=== PATIENT | female | born 1945 | race Caucasian/White ===

== ENCOUNTER 2017-03-02 08:41 | Emergency (ER) | payer MEDICARE, OTHER ==
[~2017-03-02] VITALS: Ht 160 cm; Wt 65.8 kg
[~2017-03-02 08:41] MED LIST: ACETAMINOPHEN325 M1 PO; ATENOLOL25 MG PO; ATENOLOL50 MG; CODEINE-GUAIFE120 ML PO; GABAPENTIN300 MG PO; LIPITOR20 MG PO; LISINOPRIL20 MG; LISINOPRIL20 MG PO; LYRICA50 MG PO; MUCINEX DM ER1 EAC1 PO; TRAZODONE HCL150 MG PO; TRAZODONE HCL50 MG PO; VICODIN 5-3001 EACH PO; VITAMIN D250000 UNIT PO
[2017-03-02] MEDS ORDERED: NORCO 5-325 TA1 EACH PO (09:18)
== END 2017-03-02 09:25 | disposition home or self-care (01) ==
LOC: ED 08:41
DX: H92.01 Otalgia, right ear (principal); Z86.73 Personal history of transient ischemic attack (TIA), and cerebral infarction without residual deficits; Z90.710 Acquired absence of both cervix and uterus; Z90.49 Acquired absence of other specified parts of digestive tract; Z79.899 Other long term (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
CPT/HCPCS: 99283

== ENCOUNTER 2018-08-25 07:18 | Day surgery (SDC) | payer MEDICARE, OTHER ==
[~2018-08-25] VITALS: Ht 160 cm; Wt 69.4 kg
[~2018-08-25 07:18] MED LIST changes: +CARTIA XT300 MG PO; +FLUOCINOLON118.28 M1 TOP; +NORCO 5-325 TA1 EACH PO; +PRILOSEC10 M1 PO; +VITAMIN D5000 UNIT PO; +VITAMIN D50000 UNI1 PO; +ZOLOFT50 MG PO
[2018-08-25] MEDS ORDERED: TRAZODONE HCL100 MG PO (07:40)
--- NOTE | 2018-08-25 10:28 | NUR ---
08/25/18 Benitez8 Zelda Ko 1021-PATIENT ARRIVED TO PACU ON 3L WEANED TO 2L RR EVEN. PATIENT REACTIVE TO VOICE REPORTS YES WHEN ASKED IF COMFORTABLE. ABDOMEN SOFT ENCOURAGED TO PASS FLATUS. DOZES BACK TO SLEEP.
--- NOTE | 2018-08-25 12:37 | NUR ---
LE 1150: PATIENT'S REPORTS TO THE NURSE'S STATION AND REPORTS "SHE NEEDS TO USE THE RESTROOM". THIS RN PRESENTS TO PATIENT ROOM AND PATIENT IS ASSISTED TO THE EDGE OF THE BED. PATIENT ASKED WHETHER SHE WOULD LIKE A WHEELCHAIR. PATIENT REPORTS "I SHOULD BE ABLE TO MAKE IT WITH MY CANE". PATIENT ASKS FOR HER UNDERWEAR. PATIENT BELONGING BAG IS GIVEN TO PATIENT. PATIENT IS STRUGGLING WITH GETTING HER UNDERWEAR ON AND ATTEMPTS TO PUT THEM ON INSIDE OUT DESPITE THIS RN'S OFFER TO HELP. THIS RN FINALLY ASSISTS PATIENT WITH PUTTING HER UNDERWEAR ON AND IT IS NOTED THAT PATIENT IS DISABLED ON HER LEFT SIDE. PATIENT IS GIVEN HER CANE AND SHE WALKS 3 STEPS WITH THIS RN ASSISTING HER AND SHE STATES "I DON'T KNOW IF I'M GOING TO MAKE IT WITHOUT MY LEG BRACE". PATIENT INSTRUCTED TO SIT ON THE BED AND I WILL ASSIST HER WITH PLACING HER LEG BRACE. PATIENT STATES "CAN YOU JUST GET A WHEELCHAIR INSTEAD"? PATIENT INSTRUCTED TO SIT ON THE EDGE OF THE BED WHILE I RETRIEVE THE WHEELCHAIR. PATIENT STATES "I WILL JUST REST RIGHT HERE BY THE SINK". I LEAVE THE ROOM TO RETRIEVE THE WHEELCHAIR AND WHEN I ARRIVE BACK IN THE PATIENT'S ROOM, SHE IS FOUND ON THE FLOOR NEXT TO THE SINK WITH HER HEAD AGAINST THE WALL AND THE GARBAGE CAN UNDER HER LEFT SHOULDER. PATIENT REPORTS "I DON'T KNOW WHAT HAPPENED. MY LEG GAVE OUT ON ME." PATIENT IS TEARFUL AND REPORTS "I WANT TO GO HOME". PATIENT UPDATED ON HER PLAN OF CARE AND HER REQUIREMENT TO STAY UNTIL 1315 AND PATIENT VERBALIZES UNDERSTANDING. THIS RN AND CLIVE LERMA RN ASSIST PATIENT TO STANDING POSITION AND INTO WHEELCHAIR. PATIENT TOLERATES THIS TRANSFER WELL. PATIENT WHEELED TO THE BATHROOM AND THIS RN ASSISTS PATIENT TO STANDING POSITION AND THEN TRANSFER TO THE TOILET. THIS RN IS PRESENT WITH THE PATIENT WHILE USING THE BATHROOM. PATIENT IS ASSISTED TO STANDING POSITION AND TRANSFERRING TO WHEELCHAIR AND PATIENT TOLERATES THIS WELL. PATIENT WHEELED BACK TO HER ROOM, TRANSFERRED TO THE BED AND SIDE RAILS ARE UP. CALL LIGHT W/IN REACH. SKIN ASSESSMENT DONE AND A REDDENED AREA IS NOTED ON THE BACK OF PATIENT'S HEAD. PATIENT DENIES DIZZINESS OR BLURRED VISION. PATIENT REPORTS "I FEEL FINE. JUST FOOLISH". CALL TO DR. PATEL. NO NEW ORDER RECEIVED AT THIS TIME. WILL CONTINUE TO MONITOR PATIENT.
--- NOTE | 2018-08-26 09:48 | OR ---
[facility] [address] [place], [place] [address] Signed DATE OF OPERATION: 08/25/2018 SURGEON: Mike Patel MD PREOPERATIVE DIAGNOSIS: Personal history of multiple colonic polyps in 2013. POSTOPERATIVE DIAGNOSES: 1. 4 mm cecal polyps x4. 2. 7 mm cecal polyps x2. 3. 4 mm polyp, proximal right colon. 4. 6 mm hepatic flexure. 5. 5 mm polyps at 140 and 110 cm. 6. 5 mm polyps x2 proximal transverse colon. 7. 4 mm polyps x2 at 95 and 35 cm. 8. 4 mm polyp at 10 cm. 9. Minimal to moderate internal hemorrhoids. PROCEDURES: Colonoscopy, snare polypectomy, and hot biopsy. ESTIMATED BLOOD LOSS: None. INDICATIONS: Skylar is a 72-year-old female who came in 2013. She had multiple colonic polyps removed. We had asked her to return in one year. Unfortunately, she had ended up being 4 years. She gives no family history of colon cancer or polyps. She has no lower GI complaints. 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 We always sedate Skylar with our Versed and fentanyl 1st, then we turned her on her side and that worked out very well for her. In the office I gave Skylar a pamphlet on colonoscopy and she remembers the nature of that test along with its risks including, but not limited to gas bloating, crampy abdominal pain, bleeding, perforation, requiring surgery, and missed diagnosis. She had expressed understanding wished to proceed. PROCEDURE NOTE: Skylar was taken into our endoscopy suite and placed in the supine position initially. She was given Versed and fentanyl until sedated. We rotated her then into the left lateral decubitus position. In total, she received 10 mg of Versed and 200 mcg of Electronically Signed By: MIKE PATEL MD 08/26/18 0948 PATIENT NAME: SKYLAR CALLAHAN OPERATIVE REPORT DATE OF : 47 REPORT #: [id number] PHYSICIAN: MIKE PATEL MD PCP: ROSEY LAMBERT PA-C REPORT IS CONFIDENTIAL AND NOT TO BE RELEASED WITHOUT AUTHORIZATION [facility] [address] [place], [place] [address] Signed fentanyl, mainly because it took time to remove all the polyps. During the procedure, we also had to rotate her back into the supine position in order to advance the scope into the cecum itself. Her prep was good. The scope was slowly withdrawn. The above-mentioned polyps were all removed either with hot biopsy forceps with the help of the snare. The one at 110 cm gave us the most trouble and there was another polyp within 20-30 cm proximal that also gave her some trouble. We did not see any diverticulosis. In the rectum, the scope had been retroflexed and she does have minimal to moderate internal hemorrhoid columns. After this, the gas had been suctioned out and the colonoscope removed. Skylar tolerated the procedure quite well. RECOMMENDATIONS: I will see Skylar back in my office in 7 to 14 days to review her results. Once again, we are going to recommend she return somewhere between 12 and 18 months on a short interval due to the history of number of polyps we removed. Mike Patel MD ALB/MODL /[id number] cc: ANAT Rodrigues MD Copies: ROSEY LAMBERT PA-C, ANDREW L MD ~ Electronically Signed By: MIKE PATEL MD 08/26/18 0948 PATIENT NAME: SKYLAR CALLAHAN OPERATIVE REPORT DATE OF : 47 REPORT #: [id number] PHYSICIAN: MIKE PATEL MD PCP: ROSEY LAMBERT PA-C REPORT IS CONFIDENTIAL AND NOT TO BE RELEASED WITHOUT AUTHORIZATION
--- NOTE | 2018-08-27 13:06 | NUR ---
LATE ENTRY FOR 08/25/18 DC NOTE FAILED TO STAY. PT UP WITH ASSIST AND HELPED GET DRESSED. PT NOT ALLOWING NURSES TO REALLY ASSIST HANDED PT CLOTHING. WHEN ATTEMPTED TO PUT SHOE ON PT SCREAMED. ALLOWED HER TO DRESS SELF WITH STAND BY ASSIST. AFTER GETTING DRESSED SHE DENIES ANY OTHER ACHES OR PAINS FROM FALL. STATES SLIGHT HEADACHE ONLY. PERRL. DENIES ANY VISION DISTURBANCES. HERE TO TAKE PT HOME. DCD PER WC.
== END 2018-08-25 13:20 | disposition home or self-care (01) ==
LOC: OPS 07:18 → DS 07:18 → OPS 09:00
PROVIDERS: Colon & Rectal Surgery
PROC: 0DBL8ZX Excision of Transverse Colon, Via Natural or Artificial Opening Endoscopic, Diagnostic (ICD-10-PCS; 2018-08-25)
PROC: 0DBE8ZX Excision of Large Intestine, Via Natural or Artificial Opening Endoscopic, Diagnostic (ICD-10-PCS; 2018-08-25)
PROC: 0DBH8ZX Excision of Cecum, Via Natural or Artificial Opening Endoscopic, Diagnostic (ICD-10-PCS; principal; 2018-08-25 09:00)
DX: Z12.11 Encounter for screening for malignant neoplasm of colon (principal); D12.3 Benign neoplasm of transverse colon; D12.0 Benign neoplasm of cecum; D12.6 Benign neoplasm of colon, unspecified; K64.8 Other hemorrhoids; G47.30 Sleep apnea, unspecified; M16.0 Bilateral primary osteoarthritis of hip; M81.0 Age-related osteoporosis without current pathological fracture; I69.954 Hemiplegia and hemiparesis following unspecified cerebrovascular disease affecting left non-dominant side; Z86.010 Personal history of colon polyps; Z79.899 Other long term (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; Z79.52 Long term (current) use of systemic steroids; Z98.890 Other specified postprocedural states; Z88.8 Allergy status to other drugs, medicaments and biological substances
CPT/HCPCS: 88305; 99153; G0500; J2250; J2310; J3010; J7120

== ENCOUNTER 2020-11-19 12:18 | Emergency (ER) | payer MEDICARE, OTHER ==
[~2020-11-19] VITALS: Ht 160 cm; Wt 69.4 kg
[~2020-11-19 12:18] MED LIST changes: +TRAZODONE HCL100 MG PO
[2020-11-19] MEDS ORDERED: HYDROCODON-ACE1 EA10 PO (12:40)
--- NOTE | 2020-11-20 15:39 | EKG ---
[facility] [address] [facility] [place] [address] Signed Normal sinus rhythm Nonspecific T wave abnormality Abnormal ECG No previous ECGs available Confirmed by KATIE HOSKINS DO ([id number]) on 11/20/2020 3:39:15 PM Electronically Signed By: KATIE HOSKINS DO 11/20/20 1539 PATIENT NAME: LORI CALLAHAN ANN Electrocardiogram DATE OF : 47 PHYSICIAN: KATIE HOSKINS DO REPORT #: [id number] REPORT IS CONFIDENTIAL AND NOT TO BE RELEASED WITHOUT AUTHORIZATION
== END 2020-11-19 16:49 | disposition short-term general hospital (02) ==
LOC: ED 12:18
PROC: 0T2BX0Z Change Drainage Device in Bladder, External Approach (ICD-10-PCS; principal; 2020-11-19)
DX: S72.002A Fracture of unspecified part of neck of left femur, initial encounter for closed fracture (principal); R55 Syncope and collapse; Z88.8 Allergy status to other drugs, medicaments and biological substances; Z86.73 Personal history of transient ischemic attack (TIA), and cerebral infarction without residual deficits; W18.39XA Other fall on same level, initial encounter
CPT/HCPCS: 51702; 70450; 71045; 72125; 73502; 73552; 73630; 80053; 81001; 83735; 84484; 85025; 93005; 93010; 99285-25; C9803; J2270; J3010; J7030; U0003

== ENCOUNTER 2021-08-30 10:12 | Emergency (ER) | payer MEDICARE, OTHER ==
[~2021-08-30] VITALS: Ht 160 cm; Wt 65.8 kg
[~2021-08-30 10:12] MED LIST changes: +HYDROCODON-ACE1 EA10 PO
--- OUTSIDE RECORDS SUMMARY | 2021-08-30 10:14 | XMS ---
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 [place] VISIT COUNT (12 MO.) [address] [facility] TOTAL 2 NOTE: Visits indicate total known visits. ED/UCC VISIT TRACKING (12 MO.) 08/30/2021 10:12 [facility] [place] TYPE: Emergency COMPLAINT: - GLF,L HIP PAIN 11/19/2020 12:19 [facility] [place] TYPE: Emergency COMPLAINT: - FALL DIAGNOSES: - Personal history of transient ischemic attack (TIA), and cerebral infarction without residual deficits - Pain in left hip - Other fall on same level, initial encounter - Syncope and collapse - Allergy status to other drugs, medicaments and biological substances - Fracture of unspecified part of neck of left femur, initial encounter for closed fracture INPATIENT VISIT TRACKING (12 MO.) 11/19/2020 18:06 [facility] TYPE: Medical Surgical COMPLAINT: - FEMORAL NECK FX DIAGNOSES: 0. Pain in left hip 1. Fracture of unspecified part of neck of left femur, initial encounter for closed fracture 2. Unspecified fall, initial encounter 3. History of falling 4. Unspecified place or not applicable 5. Essential (primary) hypertension 6. Syncope and collapse 7. Other constipation 8. Other chronic pain 9. Acquired absence of both cervix and uterus 10. grocery shopper (current) use of opiate analgesic 11. 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 Family history of ischemic heart disease and other diseases of the circulatory system 13. 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
[2021-08-30] MEDS ORDERED: TRAZODONE HCL150 MG PO (11:00)
[2021-08-30] MEDS ORDERED: GABAPENTIN300 MG PO (11:00)
== END 2021-08-30 13:45 | disposition home or self-care (01) ==
LOC: ED 10:12
DX: S70.02XA Contusion of left hip, initial encounter (principal); W01.10XA Fall on same level from slipping, tripping and stumbling with subsequent striking against unspecified object, initial encounter; Z88.8 Allergy status to other drugs, medicaments and biological substances; Z79.899 Other long term (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; Z79.891 Long term (current) use of opiate analgesic; Z20.822 Contact with and (suspected) exposure to COVID-19
CPT/HCPCS: 73502; 80048; 82553; 85025; 99284-25; C9803

== ENCOUNTER 2022-12-14 00:59 | Emergency (ER) | payer OTHER, MEDICARE ==
[~2022-12-14] VITALS: Ht 160 cm; Wt 65.8 kg
--- OUTSIDE RECORDS SUMMARY | 2022-12-14 01:00 | XMS ---
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 Kwadwo VISIT COUNT (12 MO.) 1 [facility] TOTAL 1 NOTE: Visits indicate total known visits. ED/UCC VISIT TRACKING (12 MO.) 12/14/2022 00:59 [facility] [place] TYPE: Emergency COMPLAINT: - GLF,LT SHOULDER/HIP PAIN INPATIENT VISIT TRACKING (12 MO.) No inpatient visits to display in this time frame [email or web address]
[2022-12-14] MEDS ORDERED: ATORVASTATIN CA40 MG PO (01:37)
[2022-12-14] MEDS ORDERED: DILTIAZEM 24HR240 M1 PO (01:37)
[2022-12-14 03:32] VITALS: BP 140/57
== END 2022-12-14 03:34 | disposition home or self-care (01) ==
LOC: ED 00:59
DX: S70.02XA Contusion of left hip, initial encounter (principal); S50.02XA Contusion of left elbow, initial encounter; W01.198A Fall on same level from slipping, tripping and stumbling with subsequent striking against other object, initial encounter; I69.351 Hemiplegia and hemiparesis following cerebral infarction affecting right dominant side; Z88.8 Allergy status to other drugs, medicaments and biological substances; Z79.899 Other long term (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
CPT/HCPCS: 73060; 73080; 73502; 73610; A9270; J1170; J2405

== ENCOUNTER 2024-05-26 02:08 | Emergency (ER) | payer MEDICARE, OTHER ==
[~2024-05-26] VITALS: Ht 160 cm; Wt 67.0 kg
[~2024-05-26 02:08] MED LIST changes: +ATORVASTATIN CA40 MG PO; +DILTIAZEM 24HR240 M1 PO
[2024-05-26] MEDS ORDERED: MORPHINE SULFATE 4 MG/ML VIAL IV ONE ×2 (02:15→03:15)
[2024-05-26] MEDS ORDERED: METFORMIN HCL500 M1 PO (02:25)
[2024-05-26 02:43] LABS: BASOPHILS 0.5 % (0-2); EOSINOPHILS 1.4 % (0-6); HEMATOCRIT 39.3 % (35.0-50.0); HEMOGLOBIN 13.7 g/dL (12.0-18.0); LYMPHOCYTES 17.7 % (24-44); MCH 31.2 (27-36); MONOCYTES 5.2 % (0-12); NEUTROPHILS 75.2 % (39-80); PLATELET COUNT 246 K/uL (140-440); RBC 4.41 M/ul (4.3-5.7); RDW 13.9 (10.5-15.0)
[2024-05-26 02:54] LABS: PROTIME 12.8 Sec (11.2-14.2)
[2024-05-26 03:02] LABS: ALBUMIN 3.8 g/dL (3.4-5.0); ALBUMIN/GLOBULIN RATIO 1.03 (1.1-2.4); ANION GAP 9.5 (7-21); BILIRUBIN, TOTAL 1.5 ng/dL (0.2-1.0); BUN/CREATININE RATIO 20.54 (6.0-28.6); CALCIUM 9.5 mg/dL (8.5-10.1); CREATININE, SERUM 0.73 mg/dL (0.55-1.02); POTASSIUM 2.5 mmol/L (3.5-5.1); PROTEIN, TOTAL 7.5 g/dL (6.4-8.2)
[2024-05-26] MEDS ORDERED: LORazepam 2 MG/ML VIAL IV ONE (03:30)
[2024-05-26] MEDS ORDERED: POTASSIUM CHLORIDE 10 MEQ TABCR PO ONE (03:45)
[2024-05-26] MEDS ORDERED: POTASSIUM CHLORIDE 10 MEQ/100 ML BAG IV ONE (03:45)
[2024-05-26] MEDS ORDERED: PERCOCET 5-3251 EACH PO (03:58)
[2024-05-26] MEDS ORDERED: OXYCODONE/ACETAMINOPHEN 1 TAB HOME.PACK PO ONE (04:15)
[2024-05-26 05:45] VITALS: BP 131/84
== END 2024-05-26 05:50 | disposition home or self-care (01) ==
LOC: ED 02:08
PROVIDERS: Family Medicine
DX: S42.212A Unspecified displaced fracture of surgical neck of left humerus, initial encounter for closed fracture (principal); I69.354 Hemiplegia and hemiparesis following cerebral infarction affecting left non-dominant side; I10 Essential (primary) hypertension; Z91.81 History of falling; Z79.84 Long term (current) use of oral hypoglycemic drugs; Z79.899 Other long term (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; Z96.642 Presence of left artificial hip joint; W19.XXXA Unspecified fall, initial encounter
CPT/HCPCS: 29105; 36415; 73030; 73070; 73502; 80053; 83735; 85025; 85610; 99284-25; A9270; J2060; J2270; J3480

== ENCOUNTER 2024-08-24 10:47 | Emergency (ER) | payer MEDICARE, OTHER ==
[~2024-08-24] VITALS: Ht 160 cm; Wt 60.8 kg
[~2024-08-24 10:47] MED LIST changes: +METFORMIN HCL500 M1 PO; +PERCOCET 5-3251 EACH PO
[2024-08-24] MEDS ORDERED: ondansetron HCL 4 MG/2 ML VIAL IV ONE (12:15)
[2024-08-24] MEDS ORDERED: MORPHINE SULFATE 4 MG/ML VIAL IV ONE ×2 (12:15→14:30)
[2024-08-24] MEDS ORDERED: SODIUM CHLORIDE 0.9% 1,000 ML IV PRN (12:15)
[2024-08-24 12:26] LABS: BASOPHILS 0.7 % (0-2); EOSINOPHILS 0.9 % (0-6); HEMOGLOBIN 14.4 g/dL (12.0-18.0); LYMPHOCYTES 15.3 % (24-44); MCH 31.2 (27-36); MCHC 35.1 g/dl (30-36); MONOCYTES 6.9 % (0-12); NEUTROPHILS 76.2 % (39-80); PLATELET COUNT 177 K/uL (140-440); RBC 4.61 M/ul (4.3-5.7); RDW 14.1 (10.5-15.0)
[2024-08-24 12:45] LABS: ALBUMIN 4.2 g/dL (3.4-5.0); ALBUMIN/GLOBULIN RATIO 1.11 (1.1-2.4); BILIRUBIN, TOTAL 1.4 ng/dL (0.2-1.0); BUN/CREATININE RATIO 15.78 (6.0-28.6); CALCIUM 9.7 mg/dL (8.5-10.1); CREATININE, SERUM 0.76 mg/dL (0.55-1.02)
[2024-08-24 13:16] LABS: BILIRUBIN, URINE NEGATIVE (negative); BLOOD/HGB, URINE NEGATIVE (Negative); KETONE, URINE NEGATIVE (Negative); LEUK ESTERASE, URINE NEGATIVE (negative); NITRITE, URINE NEGATIVE (negative)
[2024-08-24 13:25] LABS: BACTERIA, URINE RARE /hpf (negative); CASTS, URINE NONE SEEN \\lpf; COLLECTION TYPE, URINE CLEAN CATCH; CRYSTALS, URINE NONE SEEN (0-1+); EPITHELIAL CELLS, URINE SQUAMOUS 1+ /lpf (0-1+); RED BLOOD CELLS, URINE 0-1 /hpf (0-5); REFLEX CULTURE, URINE No (No)
[2024-08-24] MEDS ORDERED: HYDROCODON-ACE1 EA10 PO (14:04)
[2024-08-24] MEDS ORDERED: HYDROCODONE/ACETA 5/325 TAB PO ONE (15:00)
[2024-08-24 15:20] VITALS: BP 169/145
== END 2024-08-24 15:22 | disposition home or self-care (01) ==
LOC: ED 10:47
PROVIDERS: Emergency Medicine
DX: S52.022A Displaced fracture of olecranon process without intraarticular extension of left ulna, initial encounter for closed fracture (principal); I69.354 Hemiplegia and hemiparesis following cerebral infarction affecting left non-dominant side; I10 Essential (primary) hypertension; Z79.84 Long term (current) use of oral hypoglycemic drugs; Z79.899 Other long term (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; W10.9XXA Fall (on) (from) unspecified stairs and steps, initial encounter
CPT/HCPCS: 29105; 36415; 70450; 71045; 73080; 73090; 73110; 74177; 80053; 81001; 84484; 85025; 99284-25; J2270; J2405; J7030; Q9967

== ENCOUNTER 2024-10-21 15:15 | Emergency (ER) | payer MEDICARE, OTHER ==
[~2024-10-21] VITALS: Ht 160 cm; Wt 59.0 kg
[2024-10-21] MEDS ORDERED: EZETIMIBE10 MG (17:07)
[2024-10-21] MEDS ORDERED: STOOL SOFTENER1 EACH (17:08)
[2024-10-21] MEDS ORDERED: POTASSIUM CHLO10 MEQ (17:08)
[2024-10-21] MEDS ORDERED: CELECOXIB100 MG (17:08)
[2024-10-21] MEDS ORDERED: MELATONIN ER10 MG (17:08)
[2024-10-21] MEDS ORDERED: VITAMIN D21250 MCG (17:08)
[2024-10-21] MEDS ORDERED: LISINOPRIL10 MG (17:08)
[2024-10-21 20:42] VITALS: BP 155/68
== END 2024-10-21 20:43 | disposition home or self-care (01) ==
LOC: ED 15:15
DX: S93.402A Sprain of unspecified ligament of left ankle, initial encounter (principal); S20.212A Contusion of left front wall of thorax, initial encounter; W19.XXXA Unspecified fall, initial encounter; I10 Essential (primary) hypertension; I69.954 Hemiplegia and hemiparesis following unspecified cerebrovascular disease affecting left non-dominant side; Z79.899 Other long term (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; Z79.84 Long term (current) use of oral hypoglycemic drugs
CPT/HCPCS: 71250; 73610; 74176; 99284-25

== ENCOUNTER 2025-05-16 09:57 | Emergency (ER) | payer MEDICARE, OTHER ==
[~2025-05-16] VITALS: Ht 160 cm; Wt 53.0 kg
[~2025-05-16 09:57] MED LIST changes: +ATORVASTATIN CA80 MG PO; +CELECOXIB100 MG PO; +EZETIMIBE10 MG PO; +HEALTHYLAX17 GM PO; +LISINOPRIL10 MG PO; +MELATONIN ER10 MG; +OXYCODONE HCL5 MG PO; +POTASSIUM CHLO10 MEQ PO; +STOOL SOFTENER1 EACH PO; +TRAMADOL HCL50 MG PO; +TYLENOL EXTRA500 MG PO; +VITAMIN D21250 MCG PO
[2025-05-16] MEDS ORDERED: IBLOOD GLUCOSE TEST STRIP 1 EA TEST XX ONE (10:15)
[2025-05-16 10:38] LABS: AST (SGOT) 20 U/L (15-37); GLOMERULAR FILTRATION RATE,EST 54 mL/min (>60); PROTEIN, TOTAL 7.2 g/dL (6.4-8.2); UREA NITROGEN 18 mg/dL (7-18)
[2025-05-16 10:40] LABS: ALT (SGPT) <6 U/L (14-59)
[2025-05-16 10:51] LABS: BASOPHILS 0.5 % (0.1-1.2); EOSINOPHILS 3.4 % (0.7-5.8); LYMPHOCYTES 18.4 % (19.3-51.7); MCH 32.1 PG (25.6-32.2); MCHC 32.2 g/dL (32.2-35.5); MCV 99.7 fL (79.4-94.8); MONOCYTES 10.2 % (4.7-12.5); NEUTROPHILS 67.4 % (34.0-71.1); RBC 3.30 M/uL (3.93-5.22)
[2025-05-16 11:19] LABS: BLOOD/HGB, URINE NEGATIVE (Negative); KETONE, URINE TRACE (Negative); LEUK ESTERASE, URINE NEGATIVE (negative); NITRITE, URINE NEGATIVE (negative)
[2025-05-16 11:41] LABS: BACTERIA, URINE NONE SEEN /hpf (negative); CASTS, URINE HYALINE 1+ \\lpf; CRYSTALS, URINE NONE SEEN (0-1+); EPITHELIAL CELLS, URINE 0 /lpf (0-1+); REFLEX CULTURE, URINE No (No)
[2025-05-16] MEDS ORDERED: SODIUM CHLORIDE 0.9% 500 ML IV PRN (11:45)
[2025-05-16 14:29] VITALS: BP 114/61
--- NOTE | 2025-05-17 20:41 | EKG ---
[facility] [address] [facility] [place], [place] [address] Signed Normal sinus rhythm Nonspecific T wave abnormality Abnormal ECG When compared with ECG of 12-JAN-2025 19:36, Nonspecific T wave abnormality now evident in Lateral leads Confirmed by OWEN MONTALVO MD ([id number]) on 05/17/2025 8:41:32 PM Electronically Signed By: OWEN MONTALVO 05/17/252040 PATIENT NAME: LORI CALLAHAN Electrocardiogram DATE OF : 47 PHYSICIAN: OWEN MONTALVO REPORT #: [id number] REPORT IS CONFIDENTIAL AND NOT TO BE RELEASED WITHOUT AUTHORIZATION
== END 2025-05-16 14:24 | disposition home or self-care (01) ==
LOC: ED 09:57
PROVIDERS: Emergency Medicine
DX: R53.1 Weakness (principal); I10 Essential (primary) hypertension; I69.354 Hemiplegia and hemiparesis following cerebral infarction affecting left non-dominant side; Z79.84 Long term (current) use of oral hypoglycemic drugs; Z79.899 Other long term (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
CPT/HCPCS: 36415; 70450; 80053; 81001; 83735; 84484; 85025; 93005; 93010; 96360; 99285-25; J7040

== ENCOUNTER 2025-05-17 13:31 | Emergency (ER) | payer MEDICARE, OTHER ==
[~2025-05-17] VITALS: Ht 160 cm; Wt 53.0 kg
--- OUTSIDE RECORDS SUMMARY | 2025-05-17 13:38 | XMS ---
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 - 2 Visits in 30 Days CARE PROVIDERS SHAUNNA Ferrell [facility] Current PHONE: [phone] CORINNE NOGUERA Emergency [facility] Current PHONE: [phone] Darshana LOPEZ Nurse Practitioner: Family Current PHONE: Unknown FELICE BALBUENA [facility] Current PHONE: [phone] TASNEEM DAMIAN Nurse Practitioner Current PHONE: [phone] Chace has no Care Guidelines for this patient. Kwadwo VISIT COUNT (12 MO.) 6 [facility] TOTAL 6 NOTE: Visits indicate total known visits. ED/UCC VISIT TRACKING (12 MO.) 05/17/2025 13:31 [facility] [place] TYPE: Emergency COMPLAINT: - WEAKNESS 05/16/2025 09:58 [facility] [place] TYPE: Emergency COMPLAINT: - WEAKNESS 01/12/2025 13:10 [facility] [place] TYPE: Emergency COMPLAINT: - FALL 10/21/2024 15:15 [facility] [place] TYPE: Emergency COMPLAINT: - FALL DIAGNOSES: - Contusion of left front wall of thorax, initial encounter - Essential (primary) hypertension - Hemiplegia and hemiparesis following unspecified cerebrovascular disease affecting left non-dominant side - terminal makeup operator (current) use of oral hypoglycemic drugs - Other fdc (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 - Pain in left ankle and joints of left foot - Sprain of unspecified ligament of left ankle, initial encounter - Unspecified fall, initial encounter 08/24/2024 10:47 [facility] [place] TYPE: Emergency COMPLAINT: - LT SHOULDER INJURY DIAGNOSES: - Displaced fracture of olecranon process without intraarticular extension of left ulna, initial encounter for closed fracture - Essential (primary) hypertension - Fall (on) (from) unspecified stairs and steps, initial encounter - Hemiplegia and hemiparesis following cerebral infarction affecting left non-dominant side - retirement (current) use of oral hypoglycemic drugs - Other 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 (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 - Unspecified injury of left shoulder and upper arm, initial encounter 05/26/2024 02:09 [facility] [place] TYPE: Emergency COMPLAINT: - FALL DIAGNOSES: - Essential (primary) hypertension - Hemiplegia and hemiparesis following cerebral infarction affecting left non-dominant side - History of falling - terminal makeup operator (current) use of oral hypoglycemic drugs - Other 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 (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 - Presence of left artificial hip joint - Unspecified displaced fracture of surgical neck of left humerus, initial encounter for closed fracture - Unspecified fall, initial encounter - Unspecified injury of left shoulder and upper arm, initial encounter INPATIENT VISIT TRACKING (12 MO.) 01/13/2025 07:52 [facility] [place] TYPE: Medical Surgical COMPLAINT: - TIBIAL PLATEAU FRACTURE DIAGNOSES: - Acquired absence of both cervix and uterus - Acquired absence of both cervix and uterus - Acquired absence of other specified parts of digestive tract - Acquired absence of other specified parts of digestive tract - Displaced bicondylar fracture of left tibia, initial encounter for closed fracture - Effusion, left ankle - Effusion, left ankle - Essential (primary) hypertension - Essential (primary) hypertension - Fall (on) (from) unspecified stairs and steps, initial encounter - Fall (on) (from) unspecified stairs and steps, initial encounter - Hemiplegia and hemiparesis following other cerebrovascular disease affecting left non-dominant side - Hemiplegia and hemiparesis following other cerebrovascular disease affecting left non-dominant side - Hyperlipidemia, unspecified - Hyperlipidemia, unspecified - Insomnia, unspecified - Insomnia, unspecified - terminal makeup operator (current) use of antibiotics - retirement (current) use of antibiotics - retirement (current) use of aromatase inhibitors - retirement (current) use of aromatase inhibitors - retirement (current) use of opiate analgesic - terminal makeup operator (current) use of opiate analgesic - retirement (current) use of oral hypoglycemic drugs - terminal makeup operator (current) use of oral hypoglycemic drugs - Other 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 (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 - Other 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 (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 - Other specified postprocedural states - Other specified postprocedural states - Presence of left artificial hip joint - Presence of left artificial hip joint - Repeated falls - Repeated falls - Sprain of unspecified ligament of left ankle, initial encounter - Sprain of unspecified ligament of left ankle, initial encounter - Type 2 diabetes mellitus with diabetic neuropathy, unspecified - Type 2 diabetes mellitus with diabetic neuropathy, unspecified [email or web address]
[2025-05-17] MEDS ORDERED: IBLOOD GLUCOSE TEST STRIP 1 EA TEST XX ONE (13:45)
[2025-05-17 14:15] LABS: BASOPHILS 0.6 % (0.1-1.2); EOSINOPHILS 4.7 % (0.7-5.8); LYMPHOCYTES 24.1 % (19.3-51.7); MCH 32.5 PG (25.6-32.2); MCHC 33.0 g/dL (32.2-35.5); MCV 98.4 fL (79.4-94.8); MONOCYTES 10.6 % (4.7-12.5); NEUTROPHILS 59.8 % (34.0-71.1); RBC 3.05 M/uL (3.93-5.22)
[2025-05-17] MEDS ORDERED: SODIUM CHLORIDE 0.9% 1,000 ML IV PRN (14:15)
[2025-05-17 14:35] LABS: ALT (SGPT) 14.0 U/L (14-59); AST (SGOT) 15.0 U/L (15-37); GLOMERULAR FILTRATION RATE,EST 54.0 mL/min (>60); PROTEIN, TOTAL 6.3 g/dL (6.4-8.2); UREA NITROGEN 17.0 mg/dL (7-18)
[2025-05-17 17:00] VITALS: BP 120/65
--- NOTE | 2025-05-17 20:39 | EKG ---
[facility] [address] [facility] [place] [address] Signed Normal sinus rhythm Normal ECG When compared with ECG of 16-MAY-2025 10:35, (Unconfirmed) No significant change was found Confirmed by OWEN MONTALVO MD ([id number]) on 05/17/2025 8:39:37 PM Electronically Signed By: OWEN MONTALVO 05/17/252038 PATIENT NAME: LORI CALLAHAN ANN Electrocardiogram DATE OF : 47 PHYSICIAN: OWEN MONTALVO REPORT #: [id number] REPORT IS CONFIDENTIAL AND NOT TO BE RELEASED WITHOUT AUTHORIZATION
== END 2025-05-17 17:03 | disposition home or self-care (01) ==
LOC: ED 13:31
PROVIDERS: Emergency Medicine
DX: I95.9 Hypotension, unspecified (principal); I69.354 Hemiplegia and hemiparesis following cerebral infarction affecting left non-dominant side; I10 Essential (primary) hypertension; Z79.84 Long term (current) use of oral hypoglycemic drugs; Z79.899 Other long term (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
CPT/HCPCS: 36415; 80053; 83735; 84484; 85025; 93005; 93010; 96360; 99285-25; J7030

== ENCOUNTER 2025-06-13 13:59 | Emergency (ER) | payer MEDICARE, OTHER ==
[~2025-06-13] VITALS: Ht 160 cm; Wt 55.5 kg
--- OUTSIDE RECORDS SUMMARY | 2025-06-13 14:05 | XMS ---
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 Kwadwo VISIT COUNT (12 MO.) 6 [facility] TOTAL 6 NOTE: Visits indicate total known visits. ED/UCC VISIT TRACKING (12 MO.) 06/13/2025 13:59 [facility] [place] TYPE: Emergency COMPLAINT: - RECTAL PAIN 05/17/2025 13:31 [facility] [place] TYPE: Emergency COMPLAINT: - WEAKNESS DIAGNOSES: - Altered mental status, unspecified - Essential (primary) hypertension - Hemiplegia and hemiparesis following cerebral infarction affecting left non-dominant side - Hypotension, unspecified - FPC (current) use of oral hypoglycemic drugs - Other assisted (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 05/16/2025 09:58 [facility] [place] TYPE: Emergency COMPLAINT: - WEAKNESS DIAGNOSES: - Altered mental status, unspecified - Essential (primary) hypertension - Hemiplegia and hemiparesis following cerebral infarction affecting left non-dominant side - FPC (current) use of oral hypoglycemic drugs - Other manager terminal (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 - Weakness 01/12/2025 13:10 [facility] [place] TYPE: Emergency COMPLAINT: - FALL 10/21/2024 15:15 [facility] [place] TYPE: Emergency COMPLAINT: - FALL DIAGNOSES: - Contusion of left front wall of thorax, initial encounter - Essential (primary) hypertension - Hemiplegia and hemiparesis following unspecified cerebrovascular disease affecting left non-dominant side - FPC (current) use of oral hypoglycemic drugs - Other assisted (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 - Pain in left [...] cerebral infarction affecting left non-dominant side - FPC (current) use of oral hypoglycemic drugs - Other manager terminal (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 - Unspecified injury of left shoulder and upper arm, initial encounter INPATIENT VISIT TRACKING (12 MO.) 01/13/2025 07:[address] [facility] [place] TYPE: Medical Surgical COMPLAINT: - TIBIAL [...] - Insomnia, unspecified - Insomnia, unspecified - intermediate designer (current) use of antibiotics - intermediate designer (current) use of antibiotics - FPC (current) use of aromatase inhibitors - FPC (current) use of aromatase inhibitors - intermediate designer (current) use of opiate analgesic - intermediate designer (current) use of opiate analgesic - FPC (current) use of oral hypoglycemic drugs - intermediate designer (current) use of oral hypoglycemic drugs - Other assisted (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 - Other assisted (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 - Other specified postprocedural [...] 2 diabetes mellitus with diabetic neuropathy, unspecified [email or web address]
[2025-06-13] MEDS ORDERED: ACETAMINOPHEN 500 MG TAB PO ONE (16:15)
[2025-06-13] MEDS ORDERED: MAGNESIUM CITRATE 300 ML BTL PO ONE (18:30)
[2025-06-13 18:38] VITALS: BP 148/80
== END 2025-06-13 18:24 | disposition home or self-care (01) ==
LOC: ED 13:59
DX: M25.552 Pain in left hip (principal); I10 Essential (primary) hypertension; Z79.899 Other long term (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
CPT/HCPCS: 73502; 99283; A9270

== ENCOUNTER 2025-07-18 09:45 | Emergency (ER) | payer MEDICARE, OTHER ==
[~2025-07-18] VITALS: Ht 160 cm; Wt 55.5 kg
--- NOTE | ~2025-07-18 | EKG ---
[facility] [address] [facility] [place], [place] [address] Draft EKG completed, results pending confirmation PATIENT NAME: LORI CALLAHAN Electrocardiogram DATE OF : 47 PHYSICIAN: PRELIMINARY REPORT #: [id number] REPORT IS CONFIDENTIAL AND NOT TO BE RELEASED WITHOUT AUTHORIZATION
--- OUTSIDE RECORDS SUMMARY | ~2025-07-18 | XMS | Continuity of Care Document ---
Demographics + + + | Address | [address] | | | [place] [address] | + + + | Preferred Language | Unknown | + + + | Marital Status | | + + + | Hinduism Affiliation | Unknown | + + + | Race | White | + + + | Ethnic Group | Not or | + + + Author + + + | Author | [facility] | + + + | Organization | [facility] | + + + | Address | [address] | | | [place] [address] | + + + | Phone | | + + + Care Team Providers + + + + | Care Cloth Drier Name | Role | Phone | + + + + Unavailable | Unavailable | + + + + Unavailable | Unavailable | + + + + Allergies No information. Encounters No information. Functional Status No information. Immunizations + + + + | date | description | facility | + + + + | (no date) | No vaccine administered | [facility] | | | | [facility] | + + + + Medications + + + + | date | description | facility | + + + + | (no date) | fluocinolone acetonide 0.1 | [facility] | | | MG/ML Topical Oil | [facility] | + + + + | (no date) | melatonin 10 MG Extended | [facility] | | | Release Oral Tablet | [facility] | + + + + | (no date) | ergocalciferol 1.25 MG | [facility] | | | Oral Capsule | [facility] | + + + + | (no date) | atenolol 25 MG Oral Tablet | [facility] | | | | [facility] | + + + + | (no date) | atenolol 50 MG Oral Tablet | [facility] | | | | [facility] | + + + + | (no ) | celecoxib 100 MG Oral | [facility] | | | Capsule | [facility] | + + + + | (no date) | sertraline 50 MG Oral | [facility] | | | Tablet [Zoloft] | [facility] | + + + + | (no ) | atorvastatin 80 MG Oral | [facility] | | | Tablet | [facility] | + + + + | (no ) | gabapentin 300 MG Oral | [facility] | | | Capsule | [facility] | + + + + | (no date) | potassium chloride 10 MEQ | [facility] | | | Extended Release Oral | [facility] | | | Capsule | | + + + + | (no ) | lisinopril 20 MG Oral | [facility] | | | Tablet | [facility] | + + + + | (no ) | ezetimibe 10 MG Oral | [facility] | | | Tablet | [facility] | + + + + | (no date) | pregabalin 50 MG Oral | [facility] | | | Capsule [Lyrica] | [facility] | + + + + | (no date) | atorvastatin 20 MG Oral | [facility] | | | Tablet [Lipitor] | [facility] | + + + + | (no date) | cholecalciferol 1.25 MG | [facility] | | | Oral Capsule | [facility] | + + + + | (no date) | omeprazole 10 MG Granules | [facility] | | | for Oral Suspension | [facility] | | | [Prilosec] | | + + + + | (no date) | trazodone hydrochloride | [facility] | | | 150 MG Oral Tablet | [facility] | + + + + | (no date) | trazodone hydrochloride | [facility] | | | 100 MG Oral Tablet | [facility] | + + + + | (no date) | trazodone hydrochloride 50 | [facility] | | | MG Oral Tablet | [facility] | + + + + | (no date) | acetaminophen 325 MG / | [facility] | | | hydrocodone bitartrate 5 MG | [facility] | | | Oral Tabl | | + + + + | (no date) | cholecalciferol 0.125 MG | [facility] | | | Oral Tablet | [facility] | + + + + | (no date) | 24 HR metformin | [facility] | | | hydrochloride 500 MG | [facility] | | | Extended Release Oral T | | + + + + | (no date) | docusate sodium 50 MG / | [facility] - | | | sennosides, [facility] 8.6 MG Oral | [facility] | | | Tablet | | + + + + Problems + + + + | date | description | facility | + + + + | 2025-05-16 00:00 | Weakness | [facility] | | | | [facility] | + + + + | 2025-05-17 00:00 | Hypotension | [facility] | | | | [facility] | + + + + | 2025-06-13 [...] | (no date) | Never smoker | [facility] | | | | [facility] | + + + + Vital Signs No information."
--- OUTSIDE RECORDS SUMMARY | 2025-07-18 09:46 | XMS ---
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 E.[facility]osa VISIT COUNT (12 MO.) 7 [facility] TOTAL 7 NOTE: Visits indicate total known visits. ED/UCC VISIT TRACKING (12 MO.) 07/18/2025 09:46 [facility] [place] TYPE: Emergency COMPLAINT: - FALL 06/13/2025 13:59 [facility] [place] TYPE: Emergency COMPLAINT: - RECTAL PAIN DIAGNOSES: - Constipation, unspecified - Essential (primary) hypertension - Other shelter (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 - Pain in left hip 05/17/2025 13:31 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 [place] TYPE: Emergency COMPLAINT: - WEAKNESS DIAGNOSES: - Altered mental status, unspecified - Essential (primary) hypertension - Hemiplegia and hemiparesis following cerebral infarction affecting left non-dominant side - oil heaterman (current) use of oral hypoglycemic drugs - Other shelter (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 - Weakness 01/12/2025 13:10 [facility] [place] TYPE: Emergency COMPLAINT: - FALL 10/21/2024 15:15 [facility] [place] TYPE: Emergency COMPLAINT: - FALL DIAGNOSES: - Contusion of left front wall of thorax, initial encounter - Essential (primary) hypertension - Hemiplegia and hemiparesis following unspecified cerebrovascular disease affecting left non-dominant side - snf (current) use of oral hypoglycemic drugs - Other rn long term care (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 - Pain in left [...] cerebral infarction affecting left non-dominant side - snf (current) use of oral hypoglycemic drugs - Other rn long term care (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 - Unspecified injury of [...] - Insomnia, unspecified - Insomnia, unspecified - snf (current) use of antibiotics - snf (current) use of antibiotics - oil heaterman (current) use of aromatase inhibitors - snf (current) use of aromatase inhibitors - snf (current) use of opiate analgesic - snf (current) use of opiate analgesic - snf (current) use of oral hypoglycemic drugs - oil heaterman (current) use of oral hypoglycemic drugs - Other rn long term care (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 - Other shelter (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 - Other specified postprocedural [...] 2 diabetes mellitus with diabetic neuropathy, unspecified [email or web address]
[2025-07-18] MEDS ORDERED: FLUOXETINE HCL10 MG PO (10:04)
[2025-07-18] MEDS ORDERED: OXYCODONE HCL5 M3 PO (10:04)
[2025-07-18] MEDS ORDERED: IBLOOD GLUCOSE TEST STRIP 1 EA TEST XX ONE (10:30)
[2025-07-18] MEDS ORDERED: SODIUM CHLORIDE 0.9% 500 ML IV PRN (10:45)
[2025-07-18 10:51] LABS: BASOPHILS 0.6 % (0.1-1.2); EOSINOPHILS 8.2 % (0.7-5.8); LYMPHOCYTES 17.7 % (19.3-51.7); MCH 30.5 PG (25.6-32.2); MCHC 31.9 g/dL (32.2-35.5); MCV 95.8 fL (79.4-94.8); MONOCYTES 6.0 % (4.7-12.5); NEUTROPHILS 67.3 % (34.0-71.1); RBC 3.77 M/uL (3.93-5.22)
[2025-07-18 11:17] LABS: ALT (SGPT) 14.0 U/L (14-59); AST (SGOT) 13.0 U/L (15-37); GLOMERULAR FILTRATION RATE,EST 70.0 mL/min (>60); PROTEIN, TOTAL 6.9 g/dL (6.4-8.2); UREA NITROGEN 21.0 mg/dL (7-18)
[2025-07-18 11:37] LABS: BLOOD/HGB, URINE NEGATIVE (Negative); KETONE, URINE NEGATIVE (Negative); LEUK ESTERASE, URINE MODERATE (negative); NITRITE, URINE NEGATIVE (negative)
[2025-07-18 11:46] LABS: BACTERIA, URINE RARE /hpf (negative); CASTS, URINE NONE SEEN \\lpf; CRYSTALS, URINE NONE SEEN (0-1+); REFLEX CULTURE, URINE No (No)
[2025-07-18 12:34] VITALS: BP 145/61
== END 2025-07-18 12:36 | disposition home or self-care (01) ==
LOC: ED 09:45
PROVIDERS: Emergency Medicine
DX: R53.1 Weakness (principal); I10 Essential (primary) hypertension; Z79.899 Other long term (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
CPT/HCPCS: 36415; 70450; 80053; 81001; 83735; 84484; 85025; 93005; 93010; 99285-25

== ENCOUNTER 2025-08-03 09:07 | Emergency (ER) | payer MEDICARE, OTHER ==
[~2025-08-03] VITALS: Ht 160 cm; Wt 52.0 kg
[~2025-08-03 09:07] MED LIST changes: +FLUOXETINE HCL10 MG PO; +OXYCODONE HCL5 M3 PO
--- OUTSIDE RECORDS SUMMARY | 2025-08-03 09:14 | XMS ---
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 [facility] VISIT COUNT (12 MO.) 8 [facility] TOTAL 8 NOTE: Visits indicate total known visits. ED/UCC VISIT TRACKING (12 MO.) 08/03/2025 09:07 [facility] [place] TYPE: Emergency COMPLAINT: - LT RIB INJURY 07/18/2025 09:46 [facility] TYPE: Emergency COMPLAINT: - FALL DIAGNOSES: - Essential (primary) hypertension - Other senior living (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 - Weakness 06/13/2025 13:[address] 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 05/16/2025 09:58 [facility] [place] TYPE: Emergency COMPLAINT: - WEAKNESS DIAGNOSES: - Altered mental status, unspecified - Essential (primary) hypertension - Hemiplegia and hemiparesis following cerebral infarction affecting left non-dominant side - 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 - Other senior living (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 - Weakness 01/12/2025 13:10 [facility] [place] TYPE: Emergency COMPLAINT: - FALL 10/21/2024 15:15 [facility] [place] TYPE: Emergency COMPLAINT: - FALL DIAGNOSES: - Contusion of left front wall of thorax, initial encounter - Essential (primary) hypertension - Hemiplegia and hemiparesis following unspecified cerebrovascular disease affecting left non-dominant side - [facility] (current) use of oral hypoglycemic drugs - Other senior living (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 - Pain in left [...] cerebral infarction affecting left non-dominant side - 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 - Other senior living (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 - Unspecified injury of [...] Insomnia, unspecified - Insomnia, unspecified - 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 (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) use of antibiotics - 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 (current) use of antibiotics - [facility] (current) use of aromatase inhibitors - 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 (current) use of aromatase inhibitors - [facility] (current) use of opiate analgesic - [facility] (current) use of opiate analgesic - 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
[2025-08-03] MEDS ORDERED: ACETAMINOPHEN 500 MG TAB PO ONE (10:45)
--- OUTSIDE RECORDS SUMMARY | 2025-08-03 10:45 | XMS | Continuity of Care Document ---
Demographics + + + | Address | [address] | | | [place] [address] | + + + | Preferred Language | Unknown | + + + | Marital Status | | + + + | Church Affiliation | Unknown | + + + | Race | White | + + + | Ethnic Group | Not or | + + + Author + + + | Author | [facility] | + + + | Organization | [facility] | + + + | Address | [address] | | | [place] [address] | + + + | Phone | | + + + Care Team Providers + + + + | Care Railroad Surveyor Name | Role | Phone | + + + + Unavailable | Unavailable | + + + + Unavailable | Unavailable | + + + + Allergies No information. Encounters No information. Functional Status No information. Immunizations + + + + | date | description | facility | + + + + | (no date) | No vaccine administered | [facility] | | | | [facility] | + + + + Medications + + + + | date | description | facility | + + + + | (no date) | fluocinolone acetonide 0.1 | [facility] | | | MG/ML Topical Oil | [facility] | + + + + | (no date) | melatonin 10 MG Extended | [facility] | | | Release Oral Tablet | [facility] | + + + + | (no date) | ergocalciferol 1.25 MG | [facility] | | | Oral Capsule | [facility] | + + + + | (no date) | atenolol 25 MG Oral Tablet | [facility] | | | | [facility] | + + + + | (no date) | atenolol 50 MG Oral Tablet | [facility] | | | | [facility] | + + + + | (no ) | celecoxib 100 MG Oral | [facility] | | | Capsule | [facility] | + + + + | (no date) | sertraline 50 MG Oral | [facility] | | | Tablet [Zoloft] | [facility] | + + + + | (no ) | atorvastatin 80 MG Oral | [facility] | | | Tablet | [facility] | + + + + | (no ) | gabapentin 300 MG Oral | [facility] | | | Capsule | [facility] | + + + + | (no date) | potassium chloride 10 MEQ | [facility] | | | Extended Release Oral | [facility] | | | Capsule | | + + + + | (no ) | lisinopril 20 MG Oral | [facility] | | | Tablet | [facility] | + + + + | (no ) | ezetimibe 10 MG Oral | [facility] | | | Tablet | [facility] | + + + + | (no date) | pregabalin 50 MG Oral | [facility] | | | Capsule [Lyrica] | [facility] | + + + + | (no date) | atorvastatin 20 MG Oral | [facility] | | | Tablet [Lipitor] | [facility] | + + + + | (no date) | cholecalciferol 1.25 MG | [facility] | | | Oral Capsule | [facility] | + + + + | (no date) | omeprazole 10 MG Granules | [facility] | | | for Oral Suspension | [facility] | | | [Prilosec] | | + + + + | (no date) | trazodone hydrochloride | [facility] | | | 150 MG Oral Tablet | [facility] | + + + + | (no date) | trazodone hydrochloride | [facility] | | | 100 MG Oral Tablet | [facility] | + + + + | (no date) | trazodone hydrochloride 50 | [facility] | | | MG Oral Tablet | [facility] | + + + + | (no date) | acetaminophen 325 MG / | [facility] | | | hydrocodone bitartrate 5 MG | [facility] | | | Oral Tabl | | + + + + | (no date) | cholecalciferol 0.125 MG | [facility] | | | Oral Tablet | [facility] | + + + + | (no date) | 24 HR metformin | [facility] | | | hydrochloride 500 MG | [facility] | | | Extended Release Oral T | | + + + + | (no date) | docusate sodium 50 MG / | [facility] | | | sennosides, [facility] 8.6 MG Oral | [facility] | | | Tablet | | + + + + Problems + + + + | date | description | facility | + + + + | 2025-05-16 00:00 | Weakness | [facility] | | | | [facility] | + + + + | 2025-05-17 00:00 | Hypotension | [facility] | | | | [facility] | + + + + | 2025-06-13 00:00 | Hip pain | [facility] | | | | [facility] | + + + + Procedures No information. Results/Labs +--------+--------+ +---------+--------+---------+ | test | date | facility | value | unit | notes | +--------+--------+ +---------+--------+---------+ + + | Result panel 1 | + + + + + + + + + | Color of | 2025-05-16 | | YELLOW | (missing) | (missing) | | Urine by | 11:10 | [facility] | | | | | Auto | [facility] | | | | | | [place] | | | | | | [facility] | | | | + + + + + + + + + | Result panel 2 | + + + + + +---------+ + + | Character | 2025-05-16 | | CLEAR | (missing) | (missing) | | of Urine | 11:10 | [facility] | | | | | | [facility] | | | | | | [place] | | | | | | | [facility] | | | | + + + +---------+ + + + + | Result panel 3 | + + + + + + + + + | Glucose | 2025-05-16 | | NEGATIVE | (missing) | (missing) | | [Presence] | 11:10 | [facility] | | | | | in Urine by | [facility] | [facility] | | Test strip | | [place] | | | | | | | [facility] | | | | + + + + + + + + + | Result panel 4 | + + + + + + + + + | Urine total | 2025-05-16 | | NEGATIVE | (missing) | (missing) | | bilirubin | 11:10 | [facility] | | | | | detection by | [facility] - [facility] | | | | | test strip | | [place] | | | | | | | [facility] | | | | + + + + + + + + + | Result panel 5 | + + + + + +---------+ + + | Urine | 2025-05-16 | | TRACE | (missing) | (missing) | | ketones | 11:10 | [facility] | | | | | detection by | [facility] - [facility] | | [facility] | | test strip | | [place] | | | | | | | [facility] | | | | + + + +---------+ + + + + | Result panel 6 | + + + + + +---------+ + + | Specific | 2025-05-16 | | 1.025 | (missing) | (missing) | | gravity ur | 11:10 | [facility] | | | | | dipstick | [facility] | | | | | | [place] | | | | | | | [facility] | | | | + + + +---------+ + + + + | Result panel 7 | + + + + + + + + + | Urine | 2025-05-16 | | NEGATIVE | (missing) | (missing) | | hemoglobin | 11:10 | [facility] | | | | | detection by | [facility] - [facility] | | | | | test strip | | [place] | | | | | | | [facility] | | | | + + + + + + + + + | Result panel 8 | + + + + + +-------+ + + | Urine pH | 2025-05-16 | | 6.0 | (missing) | (missing) | | measurement | 11:10 | [facility] | | | | | by test | [facility] | | | | | strip | | [place] | | | | | | | [facility] | | | | + + + +-------+ + + + + | Result panel 9 | + + + + + + + + + | Protein | 2025-05-16 | | NEGATIVE | (missing) | (missing) | | urine test | 11:10 | [facility] | | | | | strip | | - [facility] | | | | | | | [place] | | | | | | | [facility] | | | | + + + + + + + + + | Result panel 10 | + + + + + + + + + | | 2025-05-16 | | NORMAL | (missing) | (missing) | | Urobilinogen | 11:10 | [facility] | | | | | | | - [facility] | | | | | [Mass/volume | | [place] | | | | | ] in Urine | | Hospital | | | | | by Test | | | | | | | strip | | | | | | + + + + + + + + + | Result panel 11 | + + + + + + + + + | Urine | 2025-05-16 | | NEGATIVE | (missing) | (missing) | | nitrite | 11:10 | [facility] | | | | | detection by | [facility] - [facility] | | [facility] | | test strip | | [place] | | | | | | | [facility] | | | | + + + + + + + + + | Result panel 12 | + + + + + + + + + | Urine | 2025-05-16 | | NEGATIVE | (missing) | (missing) | | leukocyte | 11:10 | [facility] | | | | | esterase | | [facility] | [facility] | | detection by | | [place] | | | | | dipstick | | Hospital | | | | + + + + + + + + + | Result panel 13 | + + + + + +-------+ + + | Automated | 2025-05-16 | | 0-1 | (missing) | (missing) | | urine | 11:10 | [facility] | | | | | sediment | | - [facility] | | | | | erythrocyte | | [place] | | | | | count by | | Hospital | | | | | microscopy | | | | | | | (number/high | | | | | | | power | | | | | | | field) | | | | | | + + + +-------+ + + + + | Result panel 14 | + + + + + +-------+ + + | Automated | 2025-05-16 | | 0-1 | (missing) | (missing) | | urine | 11:10 | [facility] | | | | | sediment | | - [facility] | | | | | leukocyte | | [place] | | | | | count by | | Hospital | | | | | microscopy | | | | | | | (number/high | | | | | | | power | | | | | | | field) | | | | | | + + + +-------+ + + + + | Result panel 15 | + + + + + +-----+ + + | Automated | 2025-05-16 | | 0 | (missing) | (missing) | | urine | 11:10 | [facility] | | | | | sediment | | - [facility] | | | | | epithelial | | [place] | | | | | cell count | | Hospital | | | | | by | | | | | | | microscopy | | | | | | | (number/high | | | | | | | power | | | | | | | field) | | | | | | + + + +-----+ + + + + | Result panel 16 | + + + + + + + + + | Crystal | 2025-05-16 | | NONE SEEN | (missing) | (missing) | | typing in | 11:10 | [facility] | | | | | urine | | - [facility] | | | | | sediment by | | [place] | | | | | light | | Hospital | | | | | microscopy | | | | | | + + + + + + + + + | Result panel 17 | + + + + + + + + + | Automated | 2025-05-16 | | NONE SEEN | (missing) | (missing) | | urine | 11:10 | [facility] | | | | | sediment | | - [facility] | | | | | bacteria | | [place] | | | | | count by | | Hospital | | | | | microscopy | | | | | | | (number/high | | | | | | | power | | | | | | | field) | | | | | | + + + + + + + + + | Result panel 18 | + + + + + + + + + | Automated | 2025-05-16 | | HYALINE 1+ | (missing) | (missing) | | casts count | 11:10 | [facility] | | | | | in urine | | - [facility] | | | | | sediment by | | [place] | | | | | microscopy | | Hospital | | | | | low power | | | | | | | field | | | | | | | (number/area | | | | | | | ) | | | | | | + + + + + + + + + | Result panel 19 | + + + + + +------+ + + | Reflexive | 2025-05-16 | | No | (missing) | (missing) | | urine | 11:10 | [facility] | | | | | bacterial | | - [facility] | | [facility] | | culture | | [place] | | | | | | | Hospital | | | | + + + +------+ + + + + | Result panel 20 | + + + + + + + + + | Urinalysis | 2025-05-16 | | CLEAN CATCH | (missing) | (missing) | | specimen | 11:10 | [facility] | | | | | collection | | - [facility] | | | | | method | | [place] | | | | | | | Hospital | | | | + + + + + + + + + | Result panel 21 | + + + + + +------+ + + | Whole blood | 2025-05-17 | | 99 | (missing) | (missing) | | glucose | 13:43 | [facility] | | | | | measurement | | - [facility] | | | | | using | | [place] | | | | | handheld | | Hospital | | | | | analyzer | | | | | | | (mass/volume | | | | | | | ) | | | | | | + + + +------+ + + + + | Result panel 22 | + + + + + +--------+ + + | Blood | 2025-05-17 | | 4.89 | (missing) | (missing) | | leukocytes | 14:10 | [facility] | | | | | automated | | - [facility] | | | | | count | | [place] | | | | | (number/volu | | Hospital | | | | | me) | | | | | | + + + +--------+ + + + + | Result panel 23 | + + + + + +--------+ + + | Automated | 2025-05-17 | | 24.1 | (missing) | (missing) | | blood | 14:10 | [facility] | | | | | lymphocyte | | - [facility] | | | | | count as | | [place] | | | | | percentage | | Hospital | | | | | ot total | | | | | | | leukocytes | | | | | | + + + +--------+ + + + + | Result panel 24 | + + + + + +--------+ + + | Automated | 2025-05-17 | | 10.6 | (missing) | (missing) | | blood | 14:10 | [facility] | | | | | monocyte | | - [facility] | | | | | count as | | [place] | | | | | percentage | | Hospital | | | | | of total | | | | | | | leukocytes | | | | | | + + + +--------+ + + + + | Result panel 25 | + + + + + +-------+ + + | Automated | 2025-05-17 | | 4.7 | (missing) | (missing) | | blood | 14:10 | [facility] | | | | | eosinophil | | - [facility] | | | | | count as | | [place] | | | | | percentage | | Hospital | | | | | of total | | | | | | | leukocytes | | | | | | + + + +-------+ + + + + | Result panel 26 | + + + + + +-------+ + + | Automated | 2025-05-17 | | 0.6 | (missing) | (missing) | | blood | 14:10 | [facility] | | | | | basophil | | - [facility] | | | | | count as | | [place] | | | | | percentage | | Hospital | | | | | of total | | | | | | | leukocytes | | | | | | + + + +-------+ + + + + | Result panel 27 | + + + + + +-------+ + + | Serum or | 2025-05-17 | | 118 | (missing) | (missing) | | plasma | 14:10 | [facility] | | | | | glucose | | - [facility] | | | | | measurement | | [place] | | | | | (mass/volume | | Hospital | | | | | ) | | | | | | + + + +-------+ + + + + | Result panel 28 | + + + + + +------+ + + | Serum or | 2025-05-17 | | 17 | (missing) | (missing) | | plasma urea | 14:10 | [facility] | | | | | nitrogen | | - [facility] | | | | | measurement | | [place] | | | | | (mass/volume | | Hospital | | | | | ) | | | | | | + + + +------+ + + + + | Result panel 29 | + + + + + +--------+ + + | Serum or | 2025-05-17 | | 1.06 | (missing) | (missing) | | plasma | 14:10 | [facility] | | | | | creatinine | | - [facility] | | | | | measurement | | [place] | | | | | (mass/volume | | Hospital | | | | | ) | | | | | | + + + +--------+ + + + + | Result panel 30 | + + + + + +------+ + + | Glomerular | 2025-05-17 | | 54 | (missing) | (missing) | | filtration | 14:10 | [facility] | | | | | rate/1.73 sq | | - [facility] | | | | | M.predicted | | [place] | | | | | [Volume | | Hospital | | | | | Rate/Area] | | | | | | | inSerum, | | | | | | | Plasma or | | | | | | | Blood by | | | | | | | Creatinine-b | | | | | | | ased formula | | | | | | | (CKD-EPI | | | | | | | 2020) | | | | | | + + + +------+ + + + + | Result panel 31 | + + + + + +---------+ + + | Serum or | 2025-05-17 | | 16.03 | (missing) | (missing) | | plasma urea | 14:10 | [facility] | | | | | nitrogen/cre | | - [facility] | | | | | atinine mass | | [place] | | | | | ratio | | Hospital | | | | + + + +---------+ + + + + | Result panel 32 | + + + + + +-------+ + + | Serum or | 2025-05-17 | | 141 | (missing) | (missing) | | plasma | 14:10 | [facility] | | | | | sodium | | - [facility] | | | | | measurement | | [place] | | | | | (moles/volum | | Hospital | | | | | e) | | | | | | + + + +-------+ + + + + | Result panel 33 | + + + + + +--------+ + + | Blood | 2025-05-17 | | 3.05 | (missing) | (missing) | | erythrocytes | 14:10 | [facility] | | | | | automated | | - [facility] | | | | | count | | [place] | | | | | (number/volu | | Hospital | | | | | me) | | | | | | + + + +--------+ + + + + | Result panel 34 | + + + + + +-------+ + + | Serum or | 2025-05-17 | | 4.6 | (missing) | (missing) | | plasma | 14:10 | [facility] | | | | | potassium | | - [facility] | | | | | measurement | | [place] | | | | | (moles/volum | | Hospital | | | | | e) | | | | | | + + + +-------+ + + + + | Result panel 35 | + + + + + +-------+ + + | Serum or | 2025-05-17 | | 105 | (missing) | (missing) | | plasma | 14:10 | [facility] | | | | | chloride | | - [facility] | | | | | measurement | | [place] | | | | | (moles/volum | | Hospital | | | | | e) | | | | | | + + + +-------+ + + + + | Result panel 36 | + + + + + +------+ + + | Serum or | 2025-05-17 | | 29 | (missing) | (missing) | | plasma | 14:10 | [facility] | | | | | carbon | | - [facility] | | | | | dioxide, | | [place] | | | | | total | | Hospital | | | | | measurement | | | | | | | (moles/volum | | | | | | | e) | | | | | | + + + +------+ + + + + | Result panel 37 | + + + + + +--------+ + + | Serum or | 2025-05-17 | | 11.6 | (missing) | (missing) | | plasma anion | 14:10 | [facility] | | | | | gap 4 | | - [facility] | | | | | | | [place] | | | | | | | Hospital | | | | + + + +--------+ + + + + | Result panel 38 | + + + + + +-------+ + + | Serum or | 2025-05-17 | | 9.1 | (missing) | (missing) | | plasma | 14:10 | [facility] | | | | | calcium | | - [facility] | | | | | measurement | | [place] | | | | | (mass/volume | | Hospital | | | | | ) | | | | | | + + + +-------+ + + + + | Result panel 39 | + + + + + +-------+ + + | Serum or | 2025-05-17 | | 1.9 | (missing) | (missing) | | plasma | 14:10 | [facility] | | | | | magnesium | | - [facility] | | | | | measurement | | [place] | | | | | (mass/volume | | Hospital | | | | | ) | | | | | | + + + +-------+ + + + + | Result panel 40 | + + + + + +-------+ + + | Serum or | 2025-05-17 | | 6.3 | (missing) | (missing) | | plasma | 14:10 | [facility] | | | | | protein | | - [facility] | | | | | measurement | | [place] | | | | | (mass/volume | | Hospital | | | | | ) | | | | | | + + + +-------+ + + + + | Result panel 41 | + + + + + +-------+ + + | Serum or | 2025-05-17 | | 3.2 | (missing) | (missing) | | plasma | 14:10 | [facility] | | | | | albumin | | - [facility] | | | | | measurement | | [place] | | | | | (mass/volume | | Hospital | | | | | ) | | | | | | + + + +-------+ + + + + | Result panel 42 | + + + + + +-------+ + + | Serum | 2025-05-17 | | 3.1 | (missing) | (missing) | | globulin | 14:10 | [facility] | | | | | measurement | | - [facility] | | | | | (mass/volume | | [place] | | | | | ) | | Hospital | | | | + + + +-------+ + + + + | Result panel 43 | + + + + + +--------+ + + | Serum or | 2025-05-17 | | 1.03 | (missing) | (missing) | | plasma | 14:10 | [facility] | | | | | albumin/glob | | - [facility] | | | | | ulin mass | | [place] | | | | | ratio | | Hospital | | | | + + + +--------+ + + + + | Result panel 44 | + + + + + +-------+ + + | Blood | 2025-05-17 | | 9.9 | (missing) | (missing) | | hemoglobin | 14:10 | [facility] | | | | | measurement | | - [facility] | | | | | (mass/volume | | [place] | | | | | ) | | Hospital | | | | + + + +-------+ + + + + | Result panel 45 | + + + + + +-------+ + + | Serum or | 2025-05-17 | | 1.5 | (missing) | (missing) | | plasma total | 14:10 | [facility] | | | | | bilirubin | | - [facility] | | | | | measurement | | [place] | | | | | (mass/volume | | Hospital | | | | | ) | | | | | | + + + +-------+ + + + + | Result panel 46 | + + + + + +------+ + + | Serum or | 2025-05-17 | | 15 | (missing) | (missing) | | plasma | 14:10 | [facility] | | | | | aspartate | | - [facility] | | | | | aminotransfe | | [place] | | | | | rase | | Hospital | | | | | measurement | | | | | | | (enzymatic | | | | | | | activity/vol | | | | | | | ume) | | | | | | + + + +------+ + + + + | Result panel 47 | + + + + + +------+ + + | Serum or | 2025-05-17 | | 14 | (missing) | (missing) | | plasma | 14:10 | [facility] | | | | | alanine | | - [facility] | | | | | aminotransfe | | [place] | | | | | rase | | Hospital | | | | | measurement | | | | | | | (enzymatic | | | | | | | activity/vol | | | | | | | ume) | | | | | | + + + +------+ + + + + | Result panel 48 | + + + + + +------+ + + | Serum or | 2025-05-17 | | 52 | (missing) | (missing) | | plasma | 14:10 | [facility] | | | | | alkaline | | - [facility] | | | | | phosphatase | | [place] | | | | | measurement | | Hospital | | | | | (enzymatic | | | | | | | activity/vol | | | | | | | ume) | | | | | | + + + +------+ + + + + | Result panel 49 | + + + + + +-------+ + + | Serum or | 2025-05-17 | | 5.4 | (missing) | (missing) | | plasma | 14:10 | [facility] | | | | | cardiac | | - [facility] | | | | | troponin I | | [place] | | | | | measurement | | Hospital | | | | | by high | | | | | | | senstivity | | | | | | | method | | | | | | | (mass/volume | | | | | | | ) | | | | | | + + + +-------+ + + + + | Result panel 50 | + + + + + +--------+ + + | Automated | 2025-05-17 | | 30.0 | (missing) | (missing) | | blood | 14:10 | [facility] | | | | | hematocrit | | - [facility] | | | | | | [place] | | | | | | | [facility] | | | | + + + +--------+ + + + + | Result panel 51 | + + + + + +--------+ + + | Automated | 2025-05-17 | | 98.4 | (missing) | (missing) | | erythrocyte | 14:10 | [facility] | | | | | mean | | - [facility] | | | | | corpuscular | | [place] | | | | | volume | | Hospital | | | | + + + +--------+ + + + + | Result panel 52 | + + + + + +--------+ + + | Automated | 2025-05-17 | | 32.5 | (missing) | (missing) | | erythrocyte | 14:10 | [facility] | | | | | mean | | - [facility] | | | | | corpuscular | | [place] | | | | | hemoglobin | | Hospital | | | | | (mass per | | | | | | | erythrocyte) | | | | | | | | | | | | | + + + +--------+ + + + + | Result panel 53 | + + + + + +--------+ + + | Automated | 2025-05-17 | | 33.0 | (missing) | (missing) | | erythrocyte | 14:10 | [facility] | | | | | mean | | - [facility] | | | | | corpuscular | | [place] | | | | | hemoglobin | | Hospital | | | | | concentratio | | | | | | | n | | | | | | | measurement | | | | | | | (mass/volume | | | | | | | ) | | | | | | + + + +--------+ + + + + | Result panel 54 | + + + + + +-------+ + + | Automated | 2025-05-17 | | 137 | (missing) | (missing) | | blood | 14:10 | [facility] | | | | | platelet | | - [facility] | | | | | count | | [place] | | | | | (count/volum | | Hospital | | | | | e) | | | | | | + + + +-------+ + + + + | Result panel 55 | + + + + + +--------+ + + | Automated | 2025-05-17 | | 59.8 | (missing) | (missing) | | blood | 14:10 | [facility] | | | | | neutrophil | | - [facility] | | | | | count as | | [place] | | | | | percentage | | Hospital | | | | | of total | | | | | | | leukocytes | | | | | | + + + +--------+ + + Social History + + + + | date | description | facility | + + + + | (no date) | Never smoker | [facility] | | | | [facility] | + + + + Vital Signs No information."
[2025-08-03 11:16] LABS: BLOOD/HGB, URINE NEGATIVE (Negative); KETONE, URINE NEGATIVE (Negative); LEUK ESTERASE, URINE SMALL (negative); NITRITE, URINE NEGATIVE (negative)
[2025-08-03 11:32] LABS: BACTERIA, URINE NONE SEEN /hpf (negative); CASTS, URINE NONE SEEN \\lpf; CRYSTALS, URINE AMORPHOUS PHOSPH 1+ (0-1+); EPITHELIAL CELLS, URINE SQUAMOUS 1+ /lpf (0-1+); REFLEX CULTURE, URINE Yes (No)
[2025-08-03] MEDS ORDERED: OXYCODONE HCL 10 MG TAB PO ONE (12:15)
[2025-08-03] MEDS ORDERED: OXYCODONE HCL 5 MG TAB PO ONE (12:15)
[2025-08-03 12:55] VITALS: BP 148/75
== END 2025-08-03 12:55 | disposition home or self-care (01) ==
LOC: ED 09:07
PROVIDERS: Emergency Medicine
DX: M25.552 Pain in left hip (principal); I10 Essential (primary) hypertension
CPT/HCPCS: 74176; 81001; 87088; 99284-25; A9270